=== PATIENT | female | born 1980 | race African-American/Black ===

== ENCOUNTER 2019-04-17 10:15 | Emergency (ER) | payer MEDICARE ==
[~2019-04-17] VITALS: Ht 154.9 cm; Wt 86.4 kg
[2019-04-17 10:20] VITALS: Ht 154.9 cm; Wt 86.4 kg
[2019-04-17 10:46] VITALS: BP 145/105
[2019-04-17] MEDS ORDERED: BACLOFEN20 M1 PO (11:06)
[2019-04-17] MEDS ORDERED: VOLTAREN75 MG PO (11:06)
== END 2019-04-17 11:24 | disposition home or self-care (01) ==
LOC: D.ER 10:15
DX: M79.18 Myalgia, other site (principal); G89.29 Other chronic pain